=== PATIENT | female | born 1985 | race Caucasian/White ===

== ENCOUNTER 2016-06-15 21:08 | Emergency (ER) | payer MEDICARE, OTHER ==
[~2016-06-15 21:08] MED LIST: ALPRAZOLAM1 MG PO; KCL PO; LASIX PO
== END 2016-06-15 21:14 | disposition home or self-care (01) ==
LOC: SED 21:08
DX: S70.361A Insect bite (nonvenomous), right thigh, initial encounter (principal); R51 Headache; R42 Dizziness and giddiness; F41.9 Anxiety disorder, unspecified; W57.XXXA Bitten or stung by nonvenomous insect and other nonvenomous arthropods, initial encounter
CPT/HCPCS: 99282

== ENCOUNTER → 2016-06-16 | Outpatient (CLI) | payer MEDICARE, OTHER ==
--- NOTE | ~2016-06-16 | MR122 ---
[facility] A Service of [facility] RADIOLOGY TEXT RESULTS PATIENT: LILLIANA GARCIA [facility]: [facility] : 89 UNIT #: [id number] AGE: [address]: Rosendo Guerra MD SEX: F ORDER DR: [id number] [address] [address] [id number] O MR#: [id number] Acc #: [id number] NAME: LILLIANA GARCIA. : 1985 SEX: F STUDY DATE/TIME: 06/16/2016 11:34 UNIT: [facility] ROOM: STUDY DESCRIPTION: MR MRA Head Wo Contrast Attending Physician: Rosendo Guerra M.D. Referring Physician: Rosendo Guerra M.D. Ordering Physician: Rosendo Guerra M.D. Primary Care Physician: Rosendo Guerra M.D. MRI [facility]ENTER REPORT This report is preliminary unless electronic signature is present. EXAM Head MRA no contrast. DATE OF STUDY 06/16/2016 PROCEDURE Axial [id number] head MRA with three-dimensional reformats. COMPARISON STUDIES None CLINICAL HISTORY Multiyear history of severe headaches, family history of intracranial aneurysm. FINDINGS Both internal carotid and vertebral arteries and the basilar artery are normally patent. There is no evidence of intracranial aneurysm. The [place] appears complete. There is no apparent flow-limiting stenosis. The intracranial vascularity is symmetric in the anterior, middle, and posterior cerebral distributions. IMPRESSION Normal head MRA. Dictated by... Jeremiah Almeida M.D. THIS IS AN ELECTRONICALLY VERIFIED REPORT [facility] A Service of [facility] RADIOLOGY TEXT RESULTS PATIENT: LILLIANA GARCIA LOCATION: [facility] : 89 UNIT #: [id number] AGE: [address]: Rosendo Guerra MD SEX: F ORDER DR: Jeremiah Almeida M.D. at 06/18/2016 4:58 PM TEV/tmw TD: 06/17/2016 09:26 JOB #: [id number] MRI CENTER REPORT Page 1 of 1
== END | disposition home or self-care (01) ==
LOC: SMRI 10:10
DX: R51 Headache (principal); E22.1 Hyperprolactinemia
CPT/HCPCS: 70544

== ENCOUNTER → 2016-06-17 | Outpatient (CLI) | payer MEDICARE, OTHER ==
--- NOTE | ~2016-06-17 | MR17 ---
[facility] A Service of [facility] RADIOLOGY TEXT RESULTS PATIENT: LILLIANA GARCIA LOCATION: [facility] : 89 UNIT #: [id number] AGE: [address]: Rosendo Guerra MD SEX: F ORDER DR: [id number] [address] [address] [id number] O MR#: [id number] Acc #: [id number] NAME: LILLIANA GARCIA : 1985 SEX: F STUDY DATE/TIME: 06/17/2016 15:18 UNIT: [facility] ROOM: STUDY DESCRIPTION: MR Brain WWo Contrast Attending Physician: Rosendo Guerra M.D. Referring Physician: Rosendo Guerra M.D. Ordering Physician: Rosendo Guerra M.D. Primary Care Physician: Rosendo Guerra M.D. MRI CENTER REPORT This report is preliminary unless electronic signature is present. EXAM MRI of the brain and sella turcica with and without contrast HISTORY Severe headaches for years with additional complaint of dizziness. Elevated prolactin levels in the blood. TECHNIQUE Multiplanar imaging of the brain was performed with thin detailed sections through the sella turcica with and without contrast. 15 mL of MultiHance was used. FINDINGS The routine brain images are normal with no evidence of white matter signal abnormality or mass lesion. Ventricular size is normal. Thin detailed sections through the sella turcica were obtained with and without contrast. Multiphase dynamic postcontrast imaging was performed. On the dynamic contrast enhanced images, on 1 of the early postcontrast series, there is slight asymmetry and enhancement with decreased enhancement in the right side of the gland compared to the left. The infundibular stalk deviates slightly to the left as well. Findings are suggestive of a small right-sided pituitary microadenoma. It measures about 3 mm in diameter. The cavernous sinuses are unremarkable. Optic chiasm is normal. 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 Otherwise negative brain MRI with and without contrast. Dictated by... Jemal Kaye M.D. [facility] A Service of [facility] & [facility] RADIOLOGY TEXT RESULTS PATIENT: LILLIANA GARCIA LOCATION: [facility] : 89 UNIT #: [id number] AGE: [address]: Rosendo Guerra MD SEX: F ORDER DR: THIS IS AN ELECTRONICALLY VERIFIED REPORT Jemal Kaye M.D. at 06/18/2016 4:54 PM BALDEMAR/shivani TD: 06/18/2016 10:23 JOB #: [id number] MRI CENTER REPORT Page 1 of 1
== END | disposition home or self-care (01) ==
LOC: SMRI 14:49
DX: R51 Headache (principal); R79.89 Other specified abnormal findings of blood chemistry
CPT/HCPCS: 70553; A9581